=== PATIENT | male | born 1970 | race Caucasian/White ===

== ENCOUNTER 2024-03-31 20:01 | Emergency (ER) | payer SELFPAY ==
[2024-03-31] MEDS ORDERED: Morphine 4 MG/ML VIAL ONE (21:15)
[2024-03-31 21:32] LABS: #Basophils 0.06 10x3/uL (0.0-0.2); #Eosinphils 0.17 10x3/uL (0.0-0.5); #Monocytes 0.77 10x3/uL (0.0-1.1); #Neutrophils 5.55 10x3/uL (1.5-8.4); %Basophils 0.6 % (0.0-2.0); %Eosinophils 1.8 % (0.0-6.0); %Lymphocytes 31.3 % (18.0-47.0); %Monocytes 8.1 % (0.0-10.0); Hematocrit 46.5 % (38.8-50.0); Hemoglobin 16.2 g/dL (13.5-17.5); Mean Corpuscular HGB CONC 34.8 g/dL (32.0-36.0); Mean Corpuscular Hemoglobin 28.8 pg (27.0-33.0); Mean Corpuscular Volume 82.7 fl (81.2-95.1); Mean Platelet Volume 9.6 fl (7.4-10.4); Platelet Count 241 10x3/uL (150-450); RBC Distribution Width 13.5 % (11.5-14.5); Red Blood Cell (RBC) Count 5.62 10x6/uL (4.32-5.72); White Blood Cell (WBC) Count 9.6 10x3/uL (3.5-10.5)
[2024-03-31 21:39] LABS: ALT (SGPT) 25 U/L (8-55); AST (SGOT) 23 U/L (5-34); Albumin 3.7 g/dL (3.5-5.0); Alkaline Phosphatase 58 U/L (40-110); Anion Gap 15 mmol/L (10-20); BUN (Urea Nitrogen) 15 mg/dL (8.4-25.7); Bilirubin, Total 0.4 mg/dL (0.2-1.2); Calc. Creatinine Clearance 0 mL/min (70-130); Calcium 9.2 mg/dL (7.8-10.44); Carbon Dioxide 19 mmol/L (22-29); Chloride 105 mmol/L (98-107); Estimated GFR 85; Globulin 4.3 g/dL (2.4-3.5); Glucose 187 mg/dL (70-105); Lipase 27 U/L (8-78); Magnesium 1.8 mg/dL (1.6-2.6); Potassium 3.7 mmol/L (3.5-5.1); Sodium 135 mmol/L (136-145)
[2024-03-31 21:40] LABS: Troponin I Less than 0.010 ng/mL (< 0.028)
[2024-03-31] MEDS ORDERED: Ketorolac Tromethamine 30 MG (1 mL) VIAL ONE (21:59)
[2024-03-31 22:53] LABS: Influenza A by NAA Not Detected (NotDetected); Influenza B by NAA Not Detected (NotDetected); SARS-CoV-2 NAA Rapid Test Not Detected (NotDetected)
== END 2024-04-01 01:43 | disposition home or self-care (01) ==
LOC: CSHERS 20:01
DX: M25.50 Pain in unspecified joint (principal); E11.65 Type 2 diabetes mellitus with hyperglycemia; I10 Essential (primary) hypertension; Z55.6 Problems related to health literacy
CPT/HCPCS: 71045; 80053; 83605; 83690; 83735; 84484; 85025; 93005; 96361; 96374; 96375; J1885; J2270

== ENCOUNTER 2025-07-26 08:02 | Observation (INO) | payer BC, SELFPAY ==
[2025-07-26] MEDS ORDERED: Metoclopramide HCl 10 MG (2 mL) VIAL ONE (08:21)
[2025-07-26] MEDS ORDERED: diphenhydrAMINE 50 MG/ML VIAL ONE (08:21)
[2025-07-26 08:48] LABS: #Basophils 0.05 10x3/uL (0.0-0.2); #Eosinophils 0.10 10x3/uL (0.0-0.5); #Monocytes 1.01 10x3/uL (0.0-1.1); #Neutrophils 7.85 10x3/uL (1.5-8.4); %Basophils 0.4 % (0.0-2.0); %Eosinophils 0.9 % (0.0-6.0); %Lymphocytes 21.0 % (18.0-47.0); %Monocytes 8.8 % (0.0-10.0); %Neutrophils 68.6 % (40.0-75.0); Hematocrit 43.3 % (38.8-50.0); Hemoglobin 15.3 g/dL (13.5-17.5); Mean Corpuscular Hemoglobin 29.9 pg (27.0-33.0); Mean Corpuscular Volume 84.6 fL (81.2-95.1); Platelet Count 244 10x3/uL (150-450); Red Blood Cell (RBC) Count 5.12 10x6/uL (4.32-5.72); White Blood Cell (WBC) Count 11.45 10x3/uL (3.5-10.5)
[2025-07-26 09:10] LABS: Acetaminophen Less than 10 mcg/mL (Less than 10); Magnesium 2.0 mg/dL (1.6-2.6); Salicylate Less than 8.0 mg/dL (Less than 8.0)
[2025-07-26 09:11] LABS: ALT (SGPT) 21 U/L (Less than 45); AST (SGOT) 21 U/L (11-34); Albumin 4.0 g/dL (3.1-4.5); Alkaline Phosphatase 39 U/L (40-110); Anion Gap 15 mmol/L (10-20); BUN (Urea Nitrogen) 25 mg/dL (8.4-25.7); Calc. Creatinine Clearance 0 mL/min (70-130); Calcium 9.6 mg/dL (7.8-10.44); Carbon Dioxide 23 mmol/L (22-29); Chloride 100 mmol/L (98-107); Globulin 3.6 g/dL (2.4-3.5); Glucose 273 mg/dL (70-105); Potassium 4.1 mmol/L (3.5-5.1); Sodium 134 mmol/L (136-145)
[2025-07-26 09:15] LABS: Troponin I Less than 0.010 ng/mL (< 0.028)
[2025-07-26 09:25] LABS: Bilirubin, Total 0.6 mg/dL (0.3-1.2)
[2025-07-26] MEDS ORDERED: Ondansetron PF 4 MG/2 ML Vial IVP PRN (10:07)
[2025-07-26] MEDS ORDERED: Calcium Carbonate 500 MG ChewTAB PO PRN (10:07)
[2025-07-26] MEDS ORDERED: Senokot S 8.6-50 MG TAB PO PRN (10:07)
[2025-07-26] MEDS ORDERED: Melatonin 3 MG TAB PO PRN (10:07)
[2025-07-26] MEDS ORDERED: Bisacodyl 10 MG SUPP PR PRN (10:07)
[2025-07-26] MEDS ORDERED: Glucagon 1 MG/ML KIT IM PRN (10:13)
[2025-07-26] MEDS ORDERED: Dextrose 50% Abboject 50 ML SYRINGE SLOW IVP PRN (10:13)
[2025-07-26 10:16] LABS: Actual Bicarbonate (HCO3v) 19.4 mEq/L (22-28); Analyzer IN Cardio CS ER; Base Excess -6.1 mEq/L (-2 - +2); Calcium, Ionized (venous) 1.14 mmol/L (1.16-1.32); Chloride (VBG) 101 mmol/L (98-106); Critical Notified By: clumpkins rt; Hematocrit-VBG 44 % (42.0-52.0); Hemoglobin (Hb) 15.1 g/dL (13.1-17.2); Potassium (VBG) 3.94 mmol/L (3.70-5.30); Puncture Site Other Site
[2025-07-26 12:09] LABS: Troponin I Less than 0.010 ng/mL (< 0.028)
[2025-07-26 12:37] LABS: Glucose, Urine (Dipstick) 100 mg/dL (Negative); Leukocyte Negative (Negative); Protein, Urine (Dipstick) 30 mg/dl (Neg-Trace); Specific Gravity, Urine 1.010 (1.005-1.030)
[2025-07-26 12:42] LABS: Cocaine Metabolite Screen Negative (Negative); THC/Cannabinoid Screen Negative (Negative); Tricyclic Screen Negative (Negative)
[2025-07-26 13:01] LABS: Bacteria/HPF None Seen HPF (None Seen); CAUTI Indications for Culture Pelvic or flank pain; RBC/HPF None Seen HPF (0-3); Urine Culture Reflex No No; WBC/HPF None Seen HPF (0-3)
[2025-07-26 15:16] LABS: Troponin I Less than 0.010 ng/mL (< 0.028)
[2025-07-26] MEDS: Heparin 5,000 UNITS/ML VIAL SC SCH (16:51)
[2025-07-26 17:39] VITALS: BMI 26.6
[2025-07-26] MEDS: Acetaminophen 325 MG TAB PO PRN (18:33)
[2025-07-26] MEDS ORDERED: HYDROcodone/Acetaminophen 5/325 mg Tablet PO PRN (18:46)
[2025-07-26] MEDS ORDERED: Prochlorperazine 10 MG/2 ML VIAL SLOW IVP PRN (18:47)
[2025-07-26 19:00] LABS: Anion Gap 12 mmol/L (10-20); BUN (Urea Nitrogen) 21 mg/dL (8.4-25.7); Calc. Creatinine Clearance 88 mL/min (70-130); Calcium 9.3 mg/dL (7.8-10.44); Carbon Dioxide 25 mmol/L (22-29); Chloride 104 mmol/L (98-107); Glucose 207 mg/dL (70-105); Potassium 3.9 mmol/L (3.5-5.1); Sodium 137 mmol/L (136-145)
[2025-07-26] MEDS: Lantus 1000 UNITS/10 ML VIAL SC SCH (21:53)
[2025-07-27 04:58] LABS: #Basophils 0.04 10x3/uL (0.0-0.2); #Eosinophils 0.17 10x3/uL (0.0-0.5); #Monocytes 0.79 10x3/uL (0.0-1.1); #Neutrophils 3.55 10x3/uL (1.5-8.4); %Basophils 0.5 % (0.0-2.0); %Eosinophils 2.1 % (0.0-6.0); %Lymphocytes 43.0 % (18.0-47.0); %Monocytes 9.9 % (0.0-10.0); %Neutrophils 44.3 % (40.0-75.0); Hematocrit 36.3 % (38.8-50.0); Hemoglobin 12.6 g/dL (13.5-17.5); Mean Corpuscular Hemoglobin 29.6 pg (27.0-33.0); Mean Corpuscular Volume 85.4 fL (81.2-95.1); Platelet Count 189 10x3/uL (150-450); Red Blood Cell (RBC) Count 4.25 10x6/uL (4.32-5.72); White Blood Cell (WBC) Count 8.02 10x3/uL (3.5-10.5)
[2025-07-27 05:11] LABS: Anion Gap 15 mmol/L (10-20); BUN (Urea Nitrogen) 16 mg/dL (8.4-25.7); Calc. Creatinine Clearance 90 mL/min (70-130); Calcium 8.7 mg/dL (7.8-10.44); Carbon Dioxide 23 mmol/L (22-29); Chloride 106 mmol/L (98-107); Glucose 238 mg/dL (70-105); Potassium 4.3 mmol/L (3.5-5.1); Sodium 140 mmol/L (136-145)
[2025-07-27] MEDS: Aspirin 81 mg Enteric Coated Tablet PO SCH (09:04)
[2025-07-27 12:45] VITALS: BP 139/77; TEMP 98
== END 2025-07-27 13:53 | disposition home or self-care (01) ==
LOC: SUATTDRO 08:02 → CSHERS 08:02 → CSHERHOLD 10:05 → CSHTELE 17:10
PROVIDERS: ADMIT Internal Medicine; ATTEND Physician Assistant
DX: R55 Syncope and collapse (principal); N17.9 Acute kidney failure, unspecified; G43.109 Migraine with aura, not intractable, without status migrainosus; K04.7 Periapical abscess without sinus; I10 Essential (primary) hypertension; E78.5 Hyperlipidemia, unspecified; F17.220 Nicotine dependence, chewing tobacco, uncomplicated; Z79.899 Other long term (current) drug therapy; Z79.84 Long term (current) use of oral hypoglycemic drugs
CPT/HCPCS: 36415; 36416; 70450; 70553; 71045; 76376; 80048; 80053; 80306; 80307; 81001; 82805; 83605; 83735; 84145; 84146; 84443; 84484; 85025; 87040; 87400; 87426; 93005; 93306; 94760; 95816; 96372; 96374; 96375; 96376; G0378; J0295; J1200; J1644; J1815; J2765; J7120